=== PATIENT | male | born 1970 | race Caucasian/White ===

== ENCOUNTER 2022-07-09 15:09 | Inpatient (IN) | payer BC, SELFPAY ==
[~2022-07-09 15:09] MED LIST: Magnevist 469MG/ML 20 ML VIAL ONE
[2022-07-09] MEDS ORDERED: Acetaminophen 650 MG Suppository PR PRN (15:40)
[2022-07-09] MEDS ORDERED: HYDROcodone/Acetaminophen 10/325 mg Tablet PO PRN (15:40)
[2022-07-09] MEDS ORDERED: Ondansetron PF 4 MG/2 ML Vial IVP PRN (15:40)
[2022-07-09] MEDS ORDERED: Dextrose 50% Abboject 50 ML SYRINGE SLOW IVP PRN (15:45)
[2022-07-09] MEDS ORDERED: Dextrose 5% in Water 1,000 ML IV PRN (15:45)
[2022-07-09] MEDS: HumaLOG 300 UNITS/3 ML VIAL SC PRN (16:45)
[2022-07-09 16:52] LABS: #Basophils 0.1 10x3/uL (0.0-0.2); #Eosinphils 0.2 10x3/uL (0.0-0.5); #Monocytes 1.1 10x3/uL (0.0-1.1); #Neutrophils 12.4 10x3/uL (1.5-8.4); %Basophils 0.6 % (0.0-2.0); %Eosinophils 1.4 % (0.0-6.0); %Lymphocytes 9.1 % (18.0-47.0); %Monocytes 7.1 % (0.0-10.0); %Neutrophils 80.4 % (40.0-75.0); Hemoglobin 14.5 g/dL (13.5-17.5); Mean Corpuscular HGB CONC 34.1 g/dL (32.0-36.0); Mean Corpuscular Hemoglobin 29.1 pg (27.0-33.0); Mean Corpuscular Volume 85.2 fl (81.2-95.1); Mean Platelet Volume 10.9 fl (7.4-10.4); Platelet Count 387 10x3/uL (150-450); RBC Distribution Width 11.6 % (11.5-14.5); Red Blood Cell (RBC) Count 4.99 10x6/uL (4.32-5.72); White Blood Cell (WBC) Count 15.4 10x3/uL (3.5-10.5)
[2022-07-09 17:04] LABS: ALT (SGPT) 20 U/L (8-55); AST (SGOT) 12 U/L (5-34); Albumin 3.7 g/dL (3.5-5.0); Alkaline Phosphatase 118 U/L (40-110); Anion Gap 16 mmol/L (10-20); BUN (Urea Nitrogen) 22 mg/dL (8.4-25.7); Bilirubin, Total 0.4 mg/dL (0.2-1.2); Calc. Creatinine Clearance 0 mL/min (70-130); Calcium 9.2 mg/dL (7.8-10.44); Carbon Dioxide 24 mmol/L (22-29); Chloride 96 mmol/L (98-107); Estimated GFR 52; Globulin 2.9 g/dL (2.4-3.5); Potassium 5.2 mmol/L (3.5-5.1); Protein, Total 6.6 g/dL (6.0-8.3); Sodium 131 mmol/L (136-145)
[2022-07-09 17:15] LABS: Glucose 657 mg/dL (70-105)
[2022-07-09] MEDS ORDERED: Insulin Regular 300 UNITS/3 ML VIAL IVP SCH (18:00)
[2022-07-09 18:40] VITALS: BMI 29.0
[2022-07-09] MEDS ORDERED: VANCOMYCIN 1.75 GM/350 ML BAG 1.75 GM in Premix Bag 1 BAG IVPB SCH (20:00)
[2022-07-09] MEDS: Heparin 5,000 UNITS/ML VIAL SC SCH (20:06)
[2022-07-09] MEDS: Cefepime 2 GM in Sodium Chloride 0.9% 100 ML IVPB SCH (21:32)
[2022-07-10 08:20] LABS: #Basophils 0.1 10x3/uL (0.0-0.2); #Eosinphils 0.3 10x3/uL (0.0-0.5); %Basophils 0.8 % (0.0-2.0); %Eosinophils 2.1 % (0.0-6.0); %Monocytes 7.5 % (0.0-10.0); %Neutrophils 75.6 % (40.0-75.0); Hemoglobin 14.3 g/dL (13.5-17.5); Mean Corpuscular HGB CONC 33.9 g/dL (32.0-36.0); Mean Corpuscular Hemoglobin 28.5 pg (27.0-33.0); Mean Corpuscular Volume 84.2 fl (81.2-95.1); Mean Platelet Volume 10.3 fl (7.4-10.4); Platelet Count 351 10x3/uL (150-450); RBC Distribution Width 11.6 % (11.5-14.5); Red Blood Cell (RBC) Count 5.01 10x6/uL (4.32-5.72); White Blood Cell (WBC) Count 13.3 10x3/uL (3.5-10.5)
[2022-07-10 08:46] LABS: Anion Gap 13 mmol/L (10-20); BUN (Urea Nitrogen) 19 mg/dL (8.4-25.7); Calc. Creatinine Clearance 131 mL/min (70-130); Carbon Dioxide 23 mmol/L (22-29); Chloride 101 mmol/L (98-107); Estimated GFR 98; Glucose 346 mg/dL (70-105); Potassium 4.5 mmol/L (3.5-5.1); Sodium 132 mmol/L (136-145)
[2022-07-10] MEDS: Cefepime 2 GM in Sodium Chloride 0.9% 100 ML IVPB SCH ×2 (08:54→22:23)
[2022-07-10] MEDS: Heparin 5,000 UNITS/ML VIAL SC SCH ×2 (08:56→15:29)
[2022-07-10] MEDS: HumaLOG 300 UNITS/3 ML VIAL SC PRN ×2 (08:56→18:32)
[2022-07-10] MEDS: Vancomycin 1.5 GRAM/300 ML BAG 1.5 GM in Premix Bag 1 BAG IVPB SCH ×2 (12:52→23:06)
[2022-07-10] MEDS ORDERED: Hydrochlorothiazide 25 MG TAB PO SCH (18:00)
[2022-07-10] MEDS ORDERED: Vancomycin 1.5 GRAM/300 ML BAG 1.5 GM in Premix Bag 1 BAG IVPB SCH (21:00)
[2022-07-10] MEDS ORDERED: Lantus 1000 UNITS/10 ML VIAL SC SCH (21:00)
[2022-07-11] MEDS: Heparin 5,000 UNITS/ML VIAL SC SCH ×4 (00:52→21:43)
[2022-07-11 06:08] LABS: #Basophils 0.1 10x3/uL (0.0-0.2); #Eosinphils 0.2 10x3/uL (0.0-0.5); #Monocytes 0.9 10x3/uL (0.0-1.1); #Neutrophils 9.1 10x3/uL (1.5-8.4); %Basophils 0.8 % (0.0-2.0); %Eosinophils 1.9 % (0.0-6.0); %Lymphocytes 12.8 % (18.0-47.0); %Monocytes 7.6 % (0.0-10.0); %Neutrophils 75.9 % (40.0-75.0); Hemoglobin 14.4 g/dL (13.5-17.5); Mean Corpuscular HGB CONC 34.1 g/dL (32.0-36.0); Mean Corpuscular Hemoglobin 29.1 pg (27.0-33.0); Mean Corpuscular Volume 85.4 fl (81.2-95.1); Mean Platelet Volume 10.8 fl (7.4-10.4); Platelet Count 340 10x3/uL (150-450); RBC Distribution Width 11.6 % (11.5-14.5); Red Blood Cell (RBC) Count 4.94 10x6/uL (4.32-5.72); White Blood Cell (WBC) Count 11.9 10x3/uL (3.5-10.5)
[2022-07-11 06:21] LABS: Anion Gap 14 mmol/L (10-20); BUN (Urea Nitrogen) 18 mg/dL (8.4-25.7); Calc. Creatinine Clearance 116 mL/min (70-130); Calcium 9.1 mg/dL (7.8-10.44); Carbon Dioxide 22 mmol/L (22-29); Chloride 101 mmol/L (98-107); Estimated GFR 85; Glucose 381 mg/dL (70-105); Potassium 4.3 mmol/L (3.5-5.1); Sodium 133 mmol/L (136-145)
[2022-07-11] MEDS: Cefepime 2 GM in Sodium Chloride 0.9% 100 ML IVPB SCH (09:20)
[2022-07-11] MEDS: Hydrochlorothiazide 25 MG TAB PO SCH (09:45)
[2022-07-11] MEDS ORDERED: Lantus 1000 UNITS/10 ML VIAL SC SCH ×2 (10:15→21:00)
[2022-07-11 11:34] LABS: Vancomycin, Trough 14.1 ug/mL
[2022-07-11] MEDS ORDERED: Bupivacaine PF 0.5% 30 ML VIAL ONE (12:13)
[2022-07-11] MEDS ORDERED: Insulin Regular 300 UNITS/3 ML VIAL ONE (12:16)
[2022-07-11] MEDS ORDERED: Lidocaine 1% PF 5 ML VIAL ONE (12:21)
[2022-07-11] MEDS ORDERED: Ondansetron PF 4 MG/2 ML Vial ONE (12:21)
[2022-07-11] MEDS ORDERED: Fentanyl 100 MCG/2 ML VIAL ONE (12:21)
[2022-07-11] MEDS ORDERED: PROPOFOL 20 ML ONE (12:21)
[2022-07-11] MEDS: Vancomycin 1.5 GRAM/300 ML BAG 1.5 GM in Premix Bag 1 BAG IVPB SCH (12:32)
[2022-07-11] MEDS ORDERED: PHENYLEPHRINE-NS 100 MCG/ML 10 ML SYRINGE ONE (12:54)
[2022-07-11 13:29] LABS: Hemoglobin A1c 13.1 % (4.0-6.0)
[2022-07-11] MEDS: HumaLOG 300 UNITS/3 ML VIAL SC PRN ×2 (17:05→21:44)
[2022-07-11] MEDS: HYDROcodone/Acetaminophen 5/325 mg Tablet PO PRN ×2 (17:19→21:43)
[2022-07-11] MEDS: cefTRIAXone\\ROCEPHIN 2 GM in Sodium Chloride 0.9% 100 ML IVPB SCH (21:43)
[2022-07-12] MEDS: Vancomycin 1.5 GRAM/300 ML BAG 1.5 GM in Premix Bag 1 BAG IVPB SCH ×2 (00:11→10:38)
[2022-07-12] MEDS: HYDROcodone/Acetaminophen 5/325 mg Tablet PO PRN ×3 (05:33→15:26)
[2022-07-12 05:36] LABS: #Basophils 0.1 10x3/uL (0.0-0.2); #Eosinphils 0.2 10x3/uL (0.0-0.5); #Monocytes 1.5 10x3/uL (0.0-1.1); #Neutrophils 13.1 10x3/uL (1.5-8.4); %Basophils 0.5 % (0.0-2.0); %Eosinophils 1.4 % (0.0-6.0); %Lymphocytes 9.9 % (18.0-47.0); %Neutrophils 78.4 % (40.0-75.0); Hemoglobin 13.6 g/dL (13.5-17.5); Mean Corpuscular HGB CONC 33.1 g/dL (32.0-36.0); Mean Corpuscular Hemoglobin 28.4 pg (27.0-33.0); Mean Corpuscular Volume 85.8 fl (81.2-95.1); Mean Platelet Volume 10.8 fl (7.4-10.4); Platelet Count 341 10x3/uL (150-450); RBC Distribution Width 11.5 % (11.5-14.5); Red Blood Cell (RBC) Count 4.79 10x6/uL (4.32-5.72); White Blood Cell (WBC) Count 16.7 10x3/uL (3.5-10.5)
[2022-07-12 05:47] LABS: Anion Gap 12 mmol/L (10-20); BUN (Urea Nitrogen) 19 mg/dL (8.4-25.7); Calc. Creatinine Clearance 114 mL/min (70-130); Calcium 8.9 mg/dL (7.8-10.44); Carbon Dioxide 25 mmol/L (22-29); Chloride 102 mmol/L (98-107); Estimated GFR 83; Glucose 216 mg/dL (70-105); Potassium 4.3 mmol/L (3.5-5.1); Sodium 135 mmol/L (136-145)
[2022-07-12] MEDS: HumaLOG 300 UNITS/3 ML VIAL SC PRN (06:19)
[2022-07-12] MEDS: Heparin 5,000 UNITS/ML VIAL SC SCH ×3 (10:36→20:43)
[2022-07-12] MEDS: Hydrochlorothiazide 25 MG TAB PO SCH (10:45)
[2022-07-12] MEDS ORDERED: Lantus 1000 UNITS/10 ML VIAL SC SCH ×3 (14:30→21:00)
[2022-07-12] MEDS ORDERED: oxyCODONE 5 MG TAB PO PRN (16:03)
[2022-07-12] MEDS ORDERED: Morphine 2 MG/ML VIAL SLOW IVP SCH (16:15)
[2022-07-12] MEDS: oxyCODONE 5 MG TAB PO PRN ×2 (16:37→20:42)
[2022-07-12] MEDS: Acetaminophen 500 MG TAB PO SCH (20:42)
[2022-07-12] MEDS: cefTRIAXone\\ROCEPHIN 2 GM in Sodium Chloride 0.9% 100 ML IVPB SCH (20:43)
[2022-07-13] MEDS: Vancomycin 1.5 GRAM/300 ML BAG 1.5 GM in Premix Bag 1 BAG IVPB SCH (00:57)
[2022-07-13] MEDS: oxyCODONE 5 MG TAB PO PRN ×4 (00:57→14:05)
[2022-07-13 01:31] LABS: Vancomycin, Trough 15.5 ug/mL
[2022-07-13 04:40] LABS: #Basophils 0.1 10x3/uL (0.0-0.2); #Eosinphils 0.3 10x3/uL (0.0-0.5); #Monocytes 1.3 10x3/uL (0.0-1.1); #Neutrophils 9.4 10x3/uL (1.5-8.4); %Basophils 0.6 % (0.0-2.0); %Eosinophils 2.2 % (0.0-6.0); %Lymphocytes 16.4 % (18.0-47.0); %Monocytes 9.7 % (0.0-10.0); %Neutrophils 70.4 % (40.0-75.0); Mean Corpuscular HGB CONC 33.4 g/dL (32.0-36.0); Mean Corpuscular Hemoglobin 28.9 pg (27.0-33.0); Mean Corpuscular Volume 86.4 fl (81.2-95.1); Mean Platelet Volume 10.6 fl (7.4-10.4); Platelet Count 369 10x3/uL (150-450); RBC Distribution Width 11.8 % (11.5-14.5); White Blood Cell (WBC) Count 13.4 10x3/uL (3.5-10.5)
[2022-07-13 04:43] LABS: Anion Gap 13 mmol/L (10-20); BUN (Urea Nitrogen) 18 mg/dL (8.4-25.7); Calc. Creatinine Clearance 142 mL/min (70-130); Carbon Dioxide 24 mmol/L (22-29); Chloride 102 mmol/L (98-107); Estimated GFR 104; Glucose 150 mg/dL (70-105); Potassium 3.5 mmol/L (3.5-5.1); Sodium 135 mmol/L (136-145)
[2022-07-13] MEDS: Acetaminophen 500 MG TAB PO SCH (09:06)
[2022-07-13] MEDS: Heparin 5,000 UNITS/ML VIAL SC SCH (09:07)
[2022-07-13] MEDS: Hydrochlorothiazide 25 MG TAB PO SCH (09:07)
[2022-07-13 13:26] VITALS: BP 167/88; TEMP 97.9
== END 2022-07-13 14:30 | disposition home or self-care (01) | DRG 617 ==
LOC: CSHTELE 15:09
PROVIDERS: ADMIT Internal Medicine; ATTEND Hospitalist
PROC: 0Y6M0ZF Detachment at Right Foot, Partial 5th Ray, Open Approach (ICD-10-PCS; principal; 2022-07-11)
DX: E11.628 Type 2 diabetes mellitus with other skin complications (principal); E11.52 Type 2 diabetes mellitus with diabetic peripheral angiopathy with gangrene; L02.611 Cutaneous abscess of right foot; L03.115 Cellulitis of right lower limb; M86.8X7 Other osteomyelitis, ankle and foot; E87.5 Hyperkalemia; E11.65 Type 2 diabetes mellitus with hyperglycemia; N17.9 Acute kidney failure, unspecified; Z79.84 Long term (current) use of oral hypoglycemic drugs; Z79.899 Other long term (current) drug therapy; E11.69 Type 2 diabetes mellitus with other specified complication; M65.9 Synovitis and tenosynovitis, unspecified
CPT/HCPCS: 36415; 36416; 80048; 80053; 80202; 82010; 83036; 85025; 85652; 87040; 87070; 87077; 87102; 87186; 87205; 87206; 88305; 88311; 93005; 97139; A9579; J0692; J0696; J1644; J1815; J2405; J2704; J3010; J3370; J3490; S0020

== ENCOUNTER 2022-07-17 13:29 | Outpatient (CLI) | payer BC | END 2022-07-17 13:30 | disposition home or self-care (01) | LOC: CSHWCC 13:29 | PROVIDERS: ATTEND Nurse Practitioner Family | DX: T81.89XD Other complications of procedures, not elsewhere classified, subsequent encounter (principal); R60.0 Localized edema | CPT/HCPCS: 97605; 99203; G0463 ==

== ENCOUNTER 2022-07-19 12:59 | Outpatient (CLI) | payer BC | END 2022-07-19 13:00 | disposition home or self-care (01) | LOC: CSHWCC 12:59 | PROVIDERS: ATTEND Nurse Practitioner Family | DX: T81.89XD Other complications of procedures, not elsewhere classified, subsequent encounter (principal) | CPT/HCPCS: 99212; G0463 ==

== ENCOUNTER 2022-07-30 15:15 | Outpatient (CLI) | payer BC | END 2022-07-30 15:16 | disposition home or self-care (01) | LOC: CSHWCC 15:15 | PROVIDERS: ATTEND Nurse Practitioner Family | DX: T81.89XD Other complications of procedures, not elsewhere classified, subsequent encounter (principal); R60.0 Localized edema ==

== ENCOUNTER 2022-08-02 14:39 | Outpatient (CLI) | payer BC | END 2022-08-02 14:40 | disposition home or self-care (01) | LOC: CSHWCC 14:39 | PROVIDERS: ATTEND Nurse Practitioner Family | DX: T81.89XD Other complications of procedures, not elsewhere classified, subsequent encounter (principal); R60.0 Localized edema | CPT/HCPCS: 29581; 97605 ==

== ENCOUNTER 2022-08-05 14:28 | Outpatient (CLI) | payer BC | END 2022-08-05 14:29 | disposition home or self-care (01) | LOC: CSHWCC 14:28 | PROVIDERS: ATTEND Nurse Practitioner Family | DX: T81.89XD Other complications of procedures, not elsewhere classified, subsequent encounter (principal); R60.0 Localized edema | CPT/HCPCS: 97605 ==

== ENCOUNTER 2022-08-07 13:34 | Outpatient (CLI) | payer BC | END 2022-08-07 13:35 | disposition home or self-care (01) | LOC: CSHWCC 13:34 | PROVIDERS: ATTEND Nurse Practitioner Family | DX: T81.89XD Other complications of procedures, not elsewhere classified, subsequent encounter (principal); R60.0 Localized edema | CPT/HCPCS: 29581; 97605 ==

== ENCOUNTER 2022-08-12 13:05 | Outpatient (CLI) | payer BC | END 2022-08-12 13:06 | disposition home or self-care (01) | LOC: CSHWCC 13:05 | PROVIDERS: ATTEND Nurse Practitioner Family | DX: T81.89XD Other complications of procedures, not elsewhere classified, subsequent encounter (principal) | CPT/HCPCS: 87070; 87077; 87186; 87205 ==

== ENCOUNTER 2022-08-19 09:09 | Outpatient (CLI) | payer BC | END 2022-08-19 09:10 | disposition home or self-care (01) | LOC: CSHWCC 09:09 | PROVIDERS: ATTEND Nurse Practitioner Family | DX: T81.89XD Other complications of procedures, not elsewhere classified, subsequent encounter (principal); R60.0 Localized edema | CPT/HCPCS: 99213; G0463 ==

== ENCOUNTER 2022-08-26 12:33 | Outpatient (CLI) | payer BC | END 2022-08-26 12:34 | disposition home or self-care (01) | LOC: CSHWCC 12:33 | PROVIDERS: ATTEND Nurse Practitioner Family | DX: T81.89XD Other complications of procedures, not elsewhere classified, subsequent encounter (principal); R60.0 Localized edema ==

== ENCOUNTER 2022-09-09 08:04 | Outpatient (CLI) | payer BC | END 2022-09-09 08:05 | disposition home or self-care (01) | LOC: CSHWCC 08:04 | PROVIDERS: ATTEND Nurse Practitioner Family | DX: T81.89XD Other complications of procedures, not elsewhere classified, subsequent encounter (principal); R60.0 Localized edema | CPT/HCPCS: 11042 ==

== ENCOUNTER 2022-10-28 08:00 | Outpatient (CLI) | payer BC | END 2022-10-28 08:01 | disposition home or self-care (01) | LOC: CSHWCC 08:00 | PROVIDERS: ATTEND Nurse Practitioner Family | DX: R60.0 Localized edema (principal); T81.89XD Other complications of procedures, not elsewhere classified, subsequent encounter | CPT/HCPCS: 11044; 87070; 87077; 87186; 87205; 99212; G0463 ==

== ENCOUNTER 2022-11-20 08:29 | Outpatient (CLI) | payer BC | END 2022-11-20 08:30 | disposition home or self-care (01) | LOC: CSHWCC 08:29 | PROVIDERS: ATTEND Nurse Practitioner Family | DX: T81.89XD Other complications of procedures, not elsewhere classified, subsequent encounter (principal); R60.0 Localized edema | CPT/HCPCS: 97597; 99213; G0463 ==

== ENCOUNTER 2022-12-04 08:06 | Outpatient (CLI) | payer BC | END 2022-12-04 08:07 | disposition home or self-care (01) | LOC: CSHWCC 08:06 | PROVIDERS: ATTEND Nurse Practitioner Family | DX: R60.0 Localized edema (principal); T81.89XD Other complications of procedures, not elsewhere classified, subsequent encounter | CPT/HCPCS: 11042 ==

== ENCOUNTER 2022-12-25 08:27 | Outpatient (CLI) | payer BC | END 2022-12-25 08:28 | disposition home or self-care (01) | LOC: CSHWCC 08:27 | PROVIDERS: ATTEND Nurse Practitioner Family | DX: T81.89XD Other complications of procedures, not elsewhere classified, subsequent encounter (principal); R60.0 Localized edema | CPT/HCPCS: 11042; 87070; 87077; 87186; 87205 ==

== ENCOUNTER 2022-12-27 12:18 | Outpatient (CLI) | payer OTHER | END 2022-12-27 12:19 | disposition home or self-care (01) | LOC: CSHRAD 12:18 | PROVIDERS: ATTEND Nurse Practitioner Family | DX: T81.89XD Other complications of procedures, not elsewhere classified, subsequent encounter (principal); L97.419 Non-pressure chronic ulcer of right heel and midfoot with unspecified severity; Z87.39 Personal history of other diseases of the musculoskeletal system and connective tissue; R93.6 Abnormal findings on diagnostic imaging of limbs ==

== ENCOUNTER 2023-01-01 08:18 | Outpatient (CLI) | payer OTHER | END 2023-01-01 08:19 | disposition home or self-care (01) | LOC: CSHWCC 08:18 | PROVIDERS: ATTEND Nurse Practitioner Family | DX: T81.89XD Other complications of procedures, not elsewhere classified, subsequent encounter (principal); R60.0 Localized edema | CPT/HCPCS: 99212; G0463 ==

== ENCOUNTER 2023-01-08 08:03 | Outpatient (CLI) | payer OTHER | END 2023-01-08 08:04 | disposition home or self-care (01) | LOC: CSHWCC 08:03 | PROVIDERS: ATTEND Nurse Practitioner Family | DX: T81.89XD Other complications of procedures, not elsewhere classified, subsequent encounter (principal) | CPT/HCPCS: 99212; G0463 ==

== ENCOUNTER 2023-01-15 08:16 | Outpatient (CLI) | payer OTHER | END 2023-01-15 08:17 | disposition home or self-care (01) | LOC: CSHWCC 08:16 | PROVIDERS: ATTEND Nurse Practitioner Family | DX: T81.89XD Other complications of procedures, not elsewhere classified, subsequent encounter (principal) | CPT/HCPCS: 99211; G0463 ==

== ENCOUNTER 2023-02-12 08:06 | Outpatient (CLI) | payer OTHER | END 2023-02-12 08:07 | disposition home or self-care (01) | LOC: CSHWCC 08:06 | PROVIDERS: ATTEND Physician Assistant | DX: T81.89XD Other complications of procedures, not elsewhere classified, subsequent encounter (principal); E11.65 Type 2 diabetes mellitus with hyperglycemia | CPT/HCPCS: 11042 ==

== ENCOUNTER 2023-02-21 08:10 | Outpatient (CLI) | payer OTHER | END 2023-02-21 08:11 | disposition home or self-care (01) | LOC: CSHWCC 08:10 | PROVIDERS: ATTEND Preventive Medicine Undersea and Hyperbaric Medicine | DX: T81.89XD Other complications of procedures, not elsewhere classified, subsequent encounter (principal); E11.621 Type 2 diabetes mellitus with foot ulcer; L97.414 Non-pressure chronic ulcer of right heel and midfoot with necrosis of bone; M86.671 Other chronic osteomyelitis, right ankle and foot | CPT/HCPCS: 36416; 97602; 99212; G0463 ==

== ENCOUNTER 2023-02-21 09:41 | Outpatient (CLI) | payer OTHER | END 2023-02-21 09:42 | disposition home or self-care (01) | LOC: CSHRAD 09:41 | PROVIDERS: ATTEND Preventive Medicine Undersea and Hyperbaric Medicine | DX: T81.89XD Other complications of procedures, not elsewhere classified, subsequent encounter (principal); M86.671 Other chronic osteomyelitis, right ankle and foot ==

== ENCOUNTER 2023-05-26 08:20 | Outpatient (CLI) | payer OTHER | END 2023-05-26 08:21 | disposition home or self-care (01) | LOC: CSHWCC 08:20 | PROVIDERS: ATTEND Physician Assistant | DX: L97.415 Non-pressure chronic ulcer of right heel and midfoot with muscle involvement without evidence of necrosis (principal); M86.671 Other chronic osteomyelitis, right ankle and foot | CPT/HCPCS: 11042; 87070; 87077; 87186; 87205; 99213; G0463 ==

== ENCOUNTER 2023-06-02 09:27 | Outpatient (CLI) | payer OTHER | END 2023-06-02 09:28 | disposition home or self-care (01) | LOC: CSHWCC 09:27 | PROVIDERS: ATTEND Physician Assistant | DX: L97.415 Non-pressure chronic ulcer of right heel and midfoot with muscle involvement without evidence of necrosis (principal); M86.671 Other chronic osteomyelitis, right ankle and foot | CPT/HCPCS: 97597 ==

== ENCOUNTER 2023-06-09 09:14 | Outpatient (CLI) | payer OTHER | END 2023-06-09 09:15 | disposition home or self-care (01) | LOC: CSHWCC 09:14 | PROVIDERS: ATTEND Nurse Practitioner Family | DX: L97.415 Non-pressure chronic ulcer of right heel and midfoot with muscle involvement without evidence of necrosis (principal); M86.671 Other chronic osteomyelitis, right ankle and foot | CPT/HCPCS: 11042 ==

== ENCOUNTER 2023-06-16 08:49 | Outpatient (CLI) | payer SELFPAY | END 2023-06-16 08:50 | disposition home or self-care (01) | LOC: CSHWCC 08:49 | PROVIDERS: ATTEND Nurse Practitioner Family | DX: L97.415 Non-pressure chronic ulcer of right heel and midfoot with muscle involvement without evidence of necrosis (principal); M86.671 Other chronic osteomyelitis, right ankle and foot | CPT/HCPCS: 11042 ==

== ENCOUNTER 2023-06-23 09:46 | Outpatient (CLI) | payer OTHER, SELFPAY | END 2023-06-23 09:47 | disposition home or self-care (01) | LOC: CSHWCC 09:46 | PROVIDERS: ATTEND Nurse Practitioner Family | DX: L97.415 Non-pressure chronic ulcer of right heel and midfoot with muscle involvement without evidence of necrosis (principal); M86.671 Other chronic osteomyelitis, right ankle and foot | CPT/HCPCS: 11042 ==

== ENCOUNTER 2023-06-30 12:48 | Outpatient (CLI) | payer OTHER, SELFPAY | END 2023-06-30 12:49 | disposition home or self-care (01) | LOC: CSHWCC 12:48 | PROVIDERS: ATTEND Nurse Practitioner Family | DX: E11.621 Type 2 diabetes mellitus with foot ulcer (principal); L97.415 Non-pressure chronic ulcer of right heel and midfoot with muscle involvement without evidence of necrosis; M86.671 Other chronic osteomyelitis, right ankle and foot | CPT/HCPCS: 11042 ==

== ENCOUNTER 2023-07-28 13:20 | Outpatient (CLI) | payer OTHER | END 2023-07-28 13:21 | disposition home or self-care (01) | LOC: CSHWCC 13:20 | PROVIDERS: ATTEND Nurse Practitioner Family | DX: E11.621 Type 2 diabetes mellitus with foot ulcer (principal); L97.415 Non-pressure chronic ulcer of right heel and midfoot with muscle involvement without evidence of necrosis; M86.671 Other chronic osteomyelitis, right ankle and foot | CPT/HCPCS: 11042; 87070; 87077; 87186; 87205; 99213; G0463 ==

== ENCOUNTER 2023-09-08 08:30 | Outpatient (CLI) | payer OTHER | END 2023-09-08 08:31 | disposition home or self-care (01) | LOC: CSHWCC 08:30 | PROVIDERS: ATTEND Family Medicine | DX: E11.621 Type 2 diabetes mellitus with foot ulcer (principal); L97.415 Non-pressure chronic ulcer of right heel and midfoot with muscle involvement without evidence of necrosis; M86.671 Other chronic osteomyelitis, right ankle and foot | CPT/HCPCS: 97597 ==

== ENCOUNTER 2023-09-15 10:27 | Outpatient (CLI) | payer OTHER | END 2023-09-15 10:28 | disposition home or self-care (01) | LOC: CSHWCC 10:27 | PROVIDERS: ATTEND Nurse Practitioner Family | DX: E11.621 Type 2 diabetes mellitus with foot ulcer (principal); L97.415 Non-pressure chronic ulcer of right heel and midfoot with muscle involvement without evidence of necrosis; M86.671 Other chronic osteomyelitis, right ankle and foot | CPT/HCPCS: 11042 ==

== ENCOUNTER 2023-09-22 10:08 | Outpatient (CLI) | payer OTHER | END 2023-09-22 10:09 | disposition home or self-care (01) | LOC: CSHWCC 10:08 | PROVIDERS: ATTEND Nurse Practitioner Family | DX: E11.621 Type 2 diabetes mellitus with foot ulcer (principal); L97.415 Non-pressure chronic ulcer of right heel and midfoot with muscle involvement without evidence of necrosis; M86.671 Other chronic osteomyelitis, right ankle and foot | CPT/HCPCS: 11042 ==

== ENCOUNTER 2023-10-07 08:20 | Outpatient (CLI) | payer OTHER | END 2023-10-07 08:21 | disposition home or self-care (01) | LOC: CSHWCC 08:20 | PROVIDERS: ATTEND Nurse Practitioner Family | DX: E11.621 Type 2 diabetes mellitus with foot ulcer (principal); L97.415 Non-pressure chronic ulcer of right heel and midfoot with muscle involvement without evidence of necrosis; M86.671 Other chronic osteomyelitis, right ankle and foot | CPT/HCPCS: 11042; 99212; G0463 ==

== ENCOUNTER 2023-10-13 10:21 | Outpatient (CLI) | payer OTHER | END 2023-10-13 10:22 | disposition home or self-care (01) | LOC: CSHWCC 10:21 | PROVIDERS: ATTEND Nurse Practitioner Family | DX: E11.621 Type 2 diabetes mellitus with foot ulcer (principal); L97.415 Non-pressure chronic ulcer of right heel and midfoot with muscle involvement without evidence of necrosis; M86.671 Other chronic osteomyelitis, right ankle and foot | CPT/HCPCS: 97597 ==

== ENCOUNTER 2023-10-20 10:00 | Outpatient (CLI) | payer OTHER | END 2023-10-20 10:01 | disposition home or self-care (01) | LOC: CSHWCC 10:00 | PROVIDERS: ATTEND Nurse Practitioner Family | DX: E11.621 Type 2 diabetes mellitus with foot ulcer (principal); L97.415 Non-pressure chronic ulcer of right heel and midfoot with muscle involvement without evidence of necrosis; M86.671 Other chronic osteomyelitis, right ankle and foot | CPT/HCPCS: 97597 ==

== ENCOUNTER 2023-10-27 09:17 | Outpatient (CLI) | payer OTHER | END 2023-10-27 09:18 | disposition home or self-care (01) | LOC: CSHWCC 09:17 | PROVIDERS: ATTEND Preventive Medicine Undersea and Hyperbaric Medicine | DX: E11.621 Type 2 diabetes mellitus with foot ulcer (principal); L97.415 Non-pressure chronic ulcer of right heel and midfoot with muscle involvement without evidence of necrosis; M86.671 Other chronic osteomyelitis, right ankle and foot | CPT/HCPCS: 99213; G0463 ==

== ENCOUNTER 2023-11-03 11:03 | Outpatient (CLI) | payer OTHER | END 2023-11-03 11:04 | disposition home or self-care (01) | LOC: CSHWCC 11:03 | PROVIDERS: ATTEND Nurse Practitioner Family | DX: E11.621 Type 2 diabetes mellitus with foot ulcer (principal); L97.415 Non-pressure chronic ulcer of right heel and midfoot with muscle involvement without evidence of necrosis; M86.671 Other chronic osteomyelitis, right ankle and foot ==

== ENCOUNTER 2023-11-18 10:32 | Outpatient (CLI) | payer OTHER | END 2023-11-18 10:33 | disposition home or self-care (01) | LOC: CSHWCC 10:32 | PROVIDERS: ATTEND Nurse Practitioner Family | DX: E11.621 Type 2 diabetes mellitus with foot ulcer (principal); L97.415 Non-pressure chronic ulcer of right heel and midfoot with muscle involvement without evidence of necrosis; M86.671 Other chronic osteomyelitis, right ankle and foot | CPT/HCPCS: 11042 ==

== ENCOUNTER 2023-12-01 10:58 | Outpatient (CLI) | payer OTHER | END 2023-12-01 10:59 | disposition home or self-care (01) | LOC: CSHWCC 10:58 | PROVIDERS: ATTEND Nurse Practitioner Family | DX: E11.621 Type 2 diabetes mellitus with foot ulcer (principal); L97.415 Non-pressure chronic ulcer of right heel and midfoot with muscle involvement without evidence of necrosis; M86.671 Other chronic osteomyelitis, right ankle and foot | CPT/HCPCS: 97597 ==

== ENCOUNTER 2023-12-23 09:03 | Outpatient (CLI) | payer OTHER | END 2023-12-23 09:04 | disposition home or self-care (01) | LOC: CSHWCC 09:03 | PROVIDERS: ATTEND Nurse Practitioner Family | DX: E11.621 Type 2 diabetes mellitus with foot ulcer (principal); L97.415 Non-pressure chronic ulcer of right heel and midfoot with muscle involvement without evidence of necrosis; M86.671 Other chronic osteomyelitis, right ankle and foot | CPT/HCPCS: 97597 ==

== ENCOUNTER 2023-12-23 09:17 | Inpatient (IN) | payer OTHER ==
[2023-12-23] MEDS ORDERED: Lidocaine 1% w/Epinephrine 1:200K 30 ML VIAL ONE (09:27)
[2023-12-23] MEDS ORDERED: Cefepime 2 GM VIAL ONE (09:48)
[2023-12-23 10:15] LABS: #Basophils 0.07 10x3/uL (0.0-0.2); #Eosinphils 0.27 10x3/uL (0.0-0.5); #Monocytes 1.53 10x3/uL (0.0-1.1); #Neutrophils 16.11 10x3/uL (1.5-8.4); %Basophils 0.4 % (0.0-2.0); %Eosinophils 1.4 % (0.0-6.0); %Monocytes 8.1 % (0.0-10.0); %Neutrophils 85.4 % (40.0-75.0); Hematocrit 37.9 % (38.8-50.0); Hemoglobin 12.9 g/dL (13.5-17.5); Mean Corpuscular Hemoglobin 30.4 pg (27.0-33.0); Mean Corpuscular Volume 89.2 fL (81.2-95.1); Platelet Count 279 10x3/uL (150-450); RBC Distribution Width 12.6 % (11.5-14.5); Red Blood Cell (RBC) Count 4.25 10x6/uL (4.32-5.72); White Blood Cell (WBC) Count 18.9 10x3/uL (3.5-10.5)
[2023-12-23 10:25] LABS: ALT (SGPT) 14 U/L (8-55); AST (SGOT) 12 U/L (5-34); Albumin 3.2 g/dL (3.5-5.0); Alkaline Phosphatase 133 U/L (40-110); Anion Gap 15 mmol/L (10-20); BUN (Urea Nitrogen) 31 mg/dL (8.4-25.7); Bilirubin, Total 0.4 mg/dL (0.2-1.2); Calc. Creatinine Clearance 0 mL/min (70-130); Calcium 9.9 mg/dL (7.8-10.44); Carbon Dioxide 23 mmol/L (22-29); Chloride 95 mmol/L (98-107); Estimated GFR 46; Globulin 4.1 g/dL (2.4-3.5); Potassium 4.9 mmol/L (3.5-5.1); Protein, Total 7.3 g/dL (6.0-8.3); Sodium 128 mmol/L (136-145)
[2023-12-23 10:32] LABS: Glucose 590 mg/dL (70-105)
[2023-12-23] MEDS ORDERED: Morphine 4 MG/ML VIAL ONE (10:56)
[2023-12-23] MEDS ORDERED: Insulin Regular, Human 100 UNIT/ML 10 ML VIAL ONE (10:57)
[2023-12-23] MEDS ORDERED: Glucagon 1 MG/ML KIT IM PRN (11:34)
[2023-12-23] MEDS ORDERED: Dextrose 50% Abboject 50 ML SYRINGE SLOW IVP PRN (11:34)
[2023-12-23] MEDS ORDERED: Dextrose 5% in Water 1,000 ML IV PRN (11:34)
[2023-12-23] MEDS: Sodium Chloride 0.9% 1,000 ML IV SCH (11:45)
[2023-12-23] MEDS: VANCOMYCIN 2 GRAM/400 ML BAG 2 GM in Premix 1 BAG IVPB SCH (12:04)
[2023-12-23 12:20] VITALS: BMI 28.9
[2023-12-23] MEDS: Acetaminophen 325 MG TAB PO SCH (12:49)
[2023-12-23 13:01] LABS: Lactic Acid 1.7 mmol/L (0.5-2.2)
[2023-12-23] MEDS: Insulin Lispro 100 UNIT/ML 10 ML VIAL SC PRN (13:06)
[2023-12-23] MEDS ORDERED: VANCOMYCIN IVPB PRN (13:39)
[2023-12-23] MEDS: traMADol HCl 50 MG TAB PO PRN (13:45)
[2023-12-23] MEDS ORDERED: Vancomycin 1 GM in Premix 1 BAG IVPB SCH (21:00)
[2023-12-24 03:53] LABS: #Basophils 0.06 10x3/uL (0.0-0.2); #Eosinphils 0.52 10x3/uL (0.0-0.5); #Monocytes 1.83 10x3/uL (0.0-1.1); #Neutrophils 15.47 10x3/uL (1.5-8.4); %Basophils 0.3 % (0.0-2.0); %Eosinophils 2.7 % (0.0-6.0); %Lymphocytes 7.4 % (18.0-47.0); %Monocytes 9.4 % (0.0-10.0); %Neutrophils 79.2 % (40.0-75.0); Hematocrit 31.7 % (38.8-50.0); Hemoglobin 10.7 g/dL (13.5-17.5); Mean Corpuscular HGB CONC 33.8 g/dL (32.0-36.0); Mean Corpuscular Hemoglobin 30.4 pg (27.0-33.0); Mean Corpuscular Volume 90.1 fL (81.2-95.1); Mean Platelet Volume 11.4 fL (7.4-10.4); Platelet Count 261 10x3/uL (150-450); RBC Distribution Width 12.7 % (11.5-14.5); Red Blood Cell (RBC) Count 3.52 10x6/uL (4.32-5.72); White Blood Cell (WBC) Count 19.5 10x3/uL (3.5-10.5)
[2023-12-24 03:55] LABS: Anion Gap 13 mmol/L (10-20); BUN (Urea Nitrogen) 20 mg/dL (8.4-25.7); Calc. Creatinine Clearance 104 mL/min (70-130); Calcium 8.8 mg/dL (7.8-10.44); Carbon Dioxide 20 mmol/L (22-29); Chloride 100 mmol/L (98-107); Estimated GFR 73; Glucose 208 mg/dL (70-105); Potassium 4.2 mmol/L (3.5-5.1); Sodium 129 mmol/L (136-145)
[2023-12-24 04:13] LABS: Vancomycin, Random 9.4 ug/mL (See Comment)
[2023-12-24] MEDS: VANCOMYCIN 1.25 GM/250 ML BAG 1.25 GM in Premix 1 BAG IVPB SCH (04:32)
[2023-12-24] MEDS: Enoxaparin 40 MG (0.4 mL) SYRINGE SC SCH (08:59)
[2023-12-24 09:38] VITALS: BMI 28.9
[2023-12-24] MEDS ORDERED: Vancomycin 1.5 GRAM/300 ML BAG 1.5 GM in Premix 1 BAG IVPB SCH (12:00)
[2023-12-24] MEDS ORDERED: Polyethylene Glycol 3350 17 GM Packet PO PRN (14:26)
[2023-12-24] MEDS: HYDROcodone/Acetaminophen 5/325 mg Tablet PO PRN (14:44)
[2023-12-25 04:40] LABS: #Basophils 0.06 10x3/uL (0.0-0.2); #Eosinphils 0.45 10x3/uL (0.0-0.5); #Monocytes 1.69 10x3/uL (0.0-1.1); #Neutrophils 14.75 10x3/uL (1.5-8.4); %Basophils 0.3 % (0.0-2.0); %Eosinophils 2.5 % (0.0-6.0); %Lymphocytes 5.7 % (18.0-47.0); %Monocytes 9.3 % (0.0-10.0); Hematocrit 30.8 % (38.8-50.0); Hemoglobin 10.2 g/dL (13.5-17.5); Mean Corpuscular HGB CONC 33.1 g/dL (32.0-36.0); Mean Corpuscular Volume 90.6 fL (81.2-95.1); Mean Platelet Volume 10.8 fL (7.4-10.4); Platelet Count 285 10x3/uL (150-450); RBC Distribution Width 12.7 % (11.5-14.5); White Blood Cell (WBC) Count 18.2 10x3/uL (3.5-10.5)
[2023-12-25 04:47] LABS: Vancomycin, Random 13.8 ug/mL (See Comment)
[2023-12-25 04:48] LABS: Anion Gap 13 mmol/L (10-20); BUN (Urea Nitrogen) 12 mg/dL (8.4-25.7); Calc. Creatinine Clearance 118 mL/min (70-130); Calcium 8.9 mg/dL (7.8-10.44); Carbon Dioxide 20 mmol/L (22-29); Chloride 102 mmol/L (98-107); Estimated GFR 84; Glucose 188 mg/dL (70-105); Potassium 4.4 mmol/L (3.5-5.1); Sodium 131 mmol/L (136-145)
[2023-12-25] MEDS: Lantus 1000 UNITS/10 ML VIAL SC SCH (12:23)
[2023-12-25] MEDS: CEFAZOLIN 1 GM in Sodium Chloride 0.9% 100 ML IVPB SCH ×2 (14:43→23:30)
[2023-12-25 16:35] LABS: Hemoglobin A1c 10.2 % (4.0-6.0)
[2023-12-26 04:14] LABS: #Basophils 0.08 10x3/uL (0.0-0.2); #Eosinphils 0.45 10x3/uL (0.0-0.5); #Neutrophils 12.27 10x3/uL (1.5-8.4); %Basophils 0.5 % (0.0-2.0); %Eosinophils 2.8 % (0.0-6.0); %Lymphocytes 7.5 % (18.0-47.0); %Monocytes 11.2 % (0.0-10.0); %Neutrophils 76.6 % (40.0-75.0); Hematocrit 30.3 % (38.8-50.0); Hemoglobin 10.1 g/dL (13.5-17.5); Mean Corpuscular HGB CONC 33.3 g/dL (32.0-36.0); Mean Corpuscular Hemoglobin 29.9 pg (27.0-33.0); Mean Corpuscular Volume 89.6 fL (81.2-95.1); Mean Platelet Volume 10.8 fL (7.4-10.4); Platelet Count 310 10x3/uL (150-450); RBC Distribution Width 12.9 % (11.5-14.5); Red Blood Cell (RBC) Count 3.38 10x6/uL (4.32-5.72)
[2023-12-26 04:17] LABS: Anion Gap 13 mmol/L (10-20); BUN (Urea Nitrogen) 10 mg/dL (8.4-25.7); Calc. Creatinine Clearance 133 mL/min (70-130); Calcium 9.1 mg/dL (7.8-10.44); Carbon Dioxide 24 mmol/L (22-29); Chloride 101 mmol/L (98-107); Estimated GFR 98; Glucose 186 mg/dL (70-105); Potassium 4.5 mmol/L (3.5-5.1); Sodium 133 mmol/L (136-145)
[2023-12-26] MEDS: Lisinopril 20 MG TAB PO SCH (04:40)
[2023-12-26] MEDS: CEFAZOLIN 2 GM in Sodium Chloride 0.9% 100 ML IVPB SCH (06:23)
[2023-12-26] MEDS: Lantus 1000 UNITS/10 ML VIAL SC SCH (09:11)
[2023-12-26] MEDS: Mupirocin 2% Ointment 22 GM Tube TOP SCH (21:29)
[2023-12-27 04:44] LABS: #Basophils 0.05 10x3/uL (0.0-0.2); #Eosinphils 0.52 10x3/uL (0.0-0.5); #Monocytes 1.59 10x3/uL (0.0-1.1); #Neutrophils 10.46 10x3/uL (1.5-8.4); %Basophils 0.4 % (0.0-2.0); %Eosinophils 3.6 % (0.0-6.0); %Lymphocytes 8.9 % (18.0-47.0); %Monocytes 11.1 % (0.0-10.0); %Neutrophils 73.3 % (40.0-75.0); Hematocrit 30.5 % (38.8-50.0); Hemoglobin 10.2 g/dL (13.5-17.5); Mean Corpuscular HGB CONC 33.4 g/dL (32.0-36.0); Mean Corpuscular Hemoglobin 30.3 pg (27.0-33.0); Mean Corpuscular Volume 90.5 fL (81.2-95.1); Mean Platelet Volume 10.7 fL (7.4-10.4); Platelet Count 286 10x3/uL (150-450); RBC Distribution Width 12.7 % (11.5-14.5); Red Blood Cell (RBC) Count 3.37 10x6/uL (4.32-5.72); White Blood Cell (WBC) Count 14.3 10x3/uL (3.5-10.5)
[2023-12-27 04:59] LABS: Anion Gap 12 mmol/L (10-20); BUN (Urea Nitrogen) 9 mg/dL (8.4-25.7); Calc. Creatinine Clearance 131 mL/min (70-130); Calcium 8.8 mg/dL (7.8-10.44); Carbon Dioxide 24 mmol/L (22-29); Chloride 102 mmol/L (98-107); Estimated GFR 96; Glucose 241 mg/dL (70-105); Potassium 3.9 mmol/L (3.5-5.1); Sodium 134 mmol/L (136-145)
[2023-12-27] MEDS: Lisinopril 20 MG TAB PO SCH (08:36)
[2023-12-27] MEDS ORDERED: hydrALAZINE 25 MG TAB PO PRN (11:10)
[2023-12-28 06:27] LABS: #Basophils 0.11 10x3/uL (0.0-0.2); #Monocytes 1.52 10x3/uL (0.0-1.1); %Basophils 0.8 % (0.0-2.0); %Eosinophils 4.2 % (0.0-6.0); %Lymphocytes 9.4 % (18.0-47.0); %Monocytes 10.6 % (0.0-10.0); %Neutrophils 70.6 % (40.0-75.0); Hematocrit 30.8 % (38.8-50.0); Hemoglobin 10.7 g/dL (13.5-17.5); Mean Corpuscular HGB CONC 34.7 g/dL (32.0-36.0); Mean Corpuscular Hemoglobin 30.7 pg (27.0-33.0); Mean Corpuscular Volume 88.5 fL (81.2-95.1); Mean Platelet Volume 10.1 fL (7.4-10.4); Platelet Count 341 10x3/uL (150-450); Red Blood Cell (RBC) Count 3.48 10x6/uL (4.32-5.72); White Blood Cell (WBC) Count 14.3 10x3/uL (3.5-10.5)
[2023-12-28 06:41] LABS: Anion Gap 12 mmol/L (10-20); BUN (Urea Nitrogen) 8 mg/dL (8.4-25.7); Calc. Creatinine Clearance 145 mL/min (70-130); Calcium 9.1 mg/dL (7.8-10.44); Carbon Dioxide 25 mmol/L (22-29); Chloride 101 mmol/L (98-107); Estimated GFR 104; Glucose 196 mg/dL (70-105); Sodium 134 mmol/L (136-145)
[2023-12-28] MEDS ORDERED: Lidocaine 1% w/Epinephrine 1:200K 30 ML VIAL FS PRN (17:27)
[2023-12-29 04:55] LABS: Anion Gap 13 mmol/L (10-20); BUN (Urea Nitrogen) 11 mg/dL (8.4-25.7); Calc. Creatinine Clearance 133 mL/min (70-130); Calcium 9.2 mg/dL (7.8-10.44); Carbon Dioxide 25 mmol/L (22-29); Chloride 103 mmol/L (98-107); Estimated GFR 98; Glucose 218 mg/dL (70-105); Potassium 4.4 mmol/L (3.5-5.1); Sodium 137 mmol/L (136-145)
[2023-12-29 05:23] LABS: Band 9 % (5-11); Eosinophils 8 % (0-10); Lymphocytes 6 % (21-51); Metamyelocyte 3 % (0-0); Monocytes 10 % (0-10); Neutrophil 62 % (42-75); RBC Morph Comment Within Normal Limits; Reactive Lymphocytes 2 % (0-10)
[2023-12-29 05:26] LABS: Platelet Adequacy Comment Appears Adequate
[2023-12-29 05:27] LABS: Delete Auto Diff?? YES; Hematocrit 33.2 % (38.8-50.0); Hemoglobin 10.7 g/dL (13.5-17.5); Mean Corpuscular HGB CONC 32.2 g/dL (32.0-36.0); Mean Corpuscular Hemoglobin 29.6 pg (27.0-33.0); Mean Corpuscular Volume 91.7 fL (81.2-95.1); Mean Platelet Volume 10.9 fL (7.4-10.4); Platelet Count 369 10x3/uL (150-450); RBC Distribution Width 12.8 % (11.5-14.5); Red Blood Cell (RBC) Count 3.62 10x6/uL (4.32-5.72)
[2023-12-29] MEDS: Lantus 1000 UNITS/10 ML VIAL SC SCH (08:36)
[2023-12-29] MEDS ORDERED: Lidocaine 1% w/Epinephrine 1:200K 30 ML VIAL FS SCH (09:45)
[2023-12-29] MEDS ORDERED: Bupivacaine HCl 0.5%/Epinephrine 1:200,000/PF 30 ml Vial IJ SCH (09:45)
[2023-12-29] MEDS: Amlodipine 5 MG TAB PO SCH (14:29)
[2023-12-30] MEDS: Amlodipine 10 MG TAB PO SCH (08:52)
[2023-12-30 12:17] VITALS: BP 150/68; TEMP 98.2
== END 2023-12-30 15:28 | disposition home or self-care (01) | DRG 854 ==
LOC: CSHERS 09:17 → CSHTELE 11:48
PROVIDERS: ADMIT Internal Medicine; ATTEND Internal Medicine
PROC: 0W9L0ZZ Drainage of Lower Back, Open Approach (ICD-10-PCS; 2023-12-23)
PROC: 0J970ZZ Drainage of Back Subcutaneous Tissue and Fascia, Open Approach (ICD-10-PCS; principal; 2023-12-29)
PROC: 0JB70ZZ Excision of Back Subcutaneous Tissue and Fascia, Open Approach (ICD-10-PCS; 2023-12-29)
DX: A41.01 Sepsis due to Methicillin susceptible Staphylococcus aureus (principal); E87.1 Hypo-osmolality and hyponatremia; L02.212 Cutaneous abscess of back [any part, except buttock and flank]; N17.9 Acute kidney failure, unspecified; I10 Essential (primary) hypertension; E11.65 Type 2 diabetes mellitus with hyperglycemia; B95.1 Streptococcus, group B, as the cause of diseases classified elsewhere; Z79.899 Other long term (current) drug therapy; Z79.85 Long-term (current) use of injectable non-insulin antidiabetic drugs
CPT/HCPCS: 10060; 36415; 36416; 72157; 72158; 80048; 80053; 80202; 83036; 83605; 85025; 86140; 87040; 87077; 87149; 87186; 93306; 96374; 96375; 97139; J0690; J0692; J1650; J1815; J2272; J3370; J7030

== ENCOUNTER 2024-01-29 09:20 | Outpatient (CLI) | payer OTHER | END 2024-01-29 09:21 | disposition home or self-care (01) | LOC: CSHWCC 09:20 | PROVIDERS: ATTEND Nurse Practitioner Family | DX: S31.000D Unspecified open wound of lower back and pelvis without penetration into retroperitoneum, subsequent encounter (principal); E11.621 Type 2 diabetes mellitus with foot ulcer; L97.415 Non-pressure chronic ulcer of right heel and midfoot with muscle involvement without evidence of necrosis; M86.671 Other chronic osteomyelitis, right ankle and foot; L02.212 Cutaneous abscess of back [any part, except buttock and flank] | CPT/HCPCS: 11042; 97597 ==

== ENCOUNTER 2024-02-04 13:48 | Outpatient (CLI) | payer OTHER | END 2024-02-04 13:49 | disposition home or self-care (01) | LOC: CSHWCC 13:48 | PROVIDERS: ATTEND Nurse Practitioner Family | DX: E11.621 Type 2 diabetes mellitus with foot ulcer (principal); L97.415 Non-pressure chronic ulcer of right heel and midfoot with muscle involvement without evidence of necrosis; M86.671 Other chronic osteomyelitis, right ankle and foot; S31.000D Unspecified open wound of lower back and pelvis without penetration into retroperitoneum, subsequent encounter; L02.212 Cutaneous abscess of back [any part, except buttock and flank] | CPT/HCPCS: 11042; 97597 ==

== ENCOUNTER 2024-03-02 09:23 | Outpatient (CLI) | payer OTHER | END 2024-03-02 09:24 | disposition home or self-care (01) | LOC: CSHWCC 09:23 | PROVIDERS: ATTEND Nurse Practitioner Family | DX: S31.000D Unspecified open wound of lower back and pelvis without penetration into retroperitoneum, subsequent encounter (principal); E11.621 Type 2 diabetes mellitus with foot ulcer; L97.415 Non-pressure chronic ulcer of right heel and midfoot with muscle involvement without evidence of necrosis; L02.212 Cutaneous abscess of back [any part, except buttock and flank]; M86.671 Other chronic osteomyelitis, right ankle and foot | CPT/HCPCS: 11042 ==

== ENCOUNTER 2024-03-12 08:12 | Outpatient (CLI) | payer OTHER | END 2024-03-12 08:13 | disposition home or self-care (01) | LOC: CSHWCC 08:12 | PROVIDERS: ATTEND Nurse Practitioner Family | DX: S31.000D Unspecified open wound of lower back and pelvis without penetration into retroperitoneum, subsequent encounter (principal); E11.621 Type 2 diabetes mellitus with foot ulcer; L97.415 Non-pressure chronic ulcer of right heel and midfoot with muscle involvement without evidence of necrosis; M86.671 Other chronic osteomyelitis, right ankle and foot; L02.212 Cutaneous abscess of back [any part, except buttock and flank] | CPT/HCPCS: 97597 ==

== ENCOUNTER 2024-03-19 08:51 | Outpatient (CLI) | payer OTHER | END 2024-03-19 08:52 | disposition home or self-care (01) | LOC: CSHWCC 08:51 | PROVIDERS: ATTEND Nurse Practitioner Family | DX: S31.000D Unspecified open wound of lower back and pelvis without penetration into retroperitoneum, subsequent encounter (principal); E11.621 Type 2 diabetes mellitus with foot ulcer; L97.415 Non-pressure chronic ulcer of right heel and midfoot with muscle involvement without evidence of necrosis; L02.212 Cutaneous abscess of back [any part, except buttock and flank]; M86.671 Other chronic osteomyelitis, right ankle and foot | CPT/HCPCS: 97597 ==

== ENCOUNTER 2024-03-26 08:42 | Outpatient (CLI) | payer OTHER | END 2024-03-26 08:43 | disposition home or self-care (01) | LOC: CSHWCC 08:42 | PROVIDERS: ATTEND Nurse Practitioner Family | DX: S31.000D Unspecified open wound of lower back and pelvis without penetration into retroperitoneum, subsequent encounter (principal); E11.621 Type 2 diabetes mellitus with foot ulcer; L97.415 Non-pressure chronic ulcer of right heel and midfoot with muscle involvement without evidence of necrosis; L02.212 Cutaneous abscess of back [any part, except buttock and flank]; M86.671 Other chronic osteomyelitis, right ankle and foot | CPT/HCPCS: 97597 ==

== ENCOUNTER 2024-04-09 08:36 | Outpatient (CLI) | payer OTHER | END 2024-04-09 08:37 | disposition home or self-care (01) | LOC: CSHWCC 08:36 | PROVIDERS: ATTEND Family Medicine | DX: E11.621 Type 2 diabetes mellitus with foot ulcer (principal); L97.415 Non-pressure chronic ulcer of right heel and midfoot with muscle involvement without evidence of necrosis; S31.000D Unspecified open wound of lower back and pelvis without penetration into retroperitoneum, subsequent encounter; L02.212 Cutaneous abscess of back [any part, except buttock and flank]; M86.671 Other chronic osteomyelitis, right ankle and foot | CPT/HCPCS: 99212; G0463 ==

== ENCOUNTER 2024-04-14 12:03 | Outpatient (CLI) | payer OTHER | END 2024-04-14 12:04 | disposition home or self-care (01) | LOC: CSHWCC 12:03 | PROVIDERS: ATTEND Nurse Practitioner Family | DX: E11.621 Type 2 diabetes mellitus with foot ulcer (principal); L97.415 Non-pressure chronic ulcer of right heel and midfoot with muscle involvement without evidence of necrosis; L02.212 Cutaneous abscess of back [any part, except buttock and flank]; M86.671 Other chronic osteomyelitis, right ankle and foot; S31.000D Unspecified open wound of lower back and pelvis without penetration into retroperitoneum, subsequent encounter | CPT/HCPCS: 11042 ==

== ENCOUNTER 2024-04-21 08:44 | Outpatient (CLI) | payer OTHER | END 2024-04-21 08:45 | disposition home or self-care (01) | LOC: CSHWCC 08:44 | PROVIDERS: ATTEND Nurse Practitioner Family | DX: S31.000D Unspecified open wound of lower back and pelvis without penetration into retroperitoneum, subsequent encounter (principal); E11.621 Type 2 diabetes mellitus with foot ulcer; L97.415 Non-pressure chronic ulcer of right heel and midfoot with muscle involvement without evidence of necrosis; M86.671 Other chronic osteomyelitis, right ankle and foot; L02.212 Cutaneous abscess of back [any part, except buttock and flank] | CPT/HCPCS: 97597 ==

== ENCOUNTER 2024-05-04 10:11 | Outpatient (CLI) | payer OTHER | END 2024-05-04 10:12 | disposition home or self-care (01) | LOC: CSHWCC 10:11 | PROVIDERS: ATTEND Nurse Practitioner Family | DX: S31.000D Unspecified open wound of lower back and pelvis without penetration into retroperitoneum, subsequent encounter (principal); E11.621 Type 2 diabetes mellitus with foot ulcer; L97.415 Non-pressure chronic ulcer of right heel and midfoot with muscle involvement without evidence of necrosis; L02.212 Cutaneous abscess of back [any part, except buttock and flank]; M86.671 Other chronic osteomyelitis, right ankle and foot | CPT/HCPCS: 97597 ==

== ENCOUNTER 2024-05-11 08:56 | Outpatient (CLI) | payer OTHER | END 2024-05-11 08:57 | disposition home or self-care (01) | LOC: CSHWCC 08:56 | PROVIDERS: ATTEND Nurse Practitioner Family | DX: S31.000D Unspecified open wound of lower back and pelvis without penetration into retroperitoneum, subsequent encounter (principal); E11.621 Type 2 diabetes mellitus with foot ulcer; L97.415 Non-pressure chronic ulcer of right heel and midfoot with muscle involvement without evidence of necrosis; M86.671 Other chronic osteomyelitis, right ankle and foot; L02.212 Cutaneous abscess of back [any part, except buttock and flank] | CPT/HCPCS: 97597 ==

== ENCOUNTER 2024-05-18 08:45 | Outpatient (CLI) | payer OTHER | END 2024-05-18 08:46 | disposition home or self-care (01) | LOC: CSHWCC 08:45 | PROVIDERS: ATTEND Nurse Practitioner Family | DX: S31.000D Unspecified open wound of lower back and pelvis without penetration into retroperitoneum, subsequent encounter (principal); E11.621 Type 2 diabetes mellitus with foot ulcer; L97.415 Non-pressure chronic ulcer of right heel and midfoot with muscle involvement without evidence of necrosis; M86.671 Other chronic osteomyelitis, right ankle and foot; L02.212 Cutaneous abscess of back [any part, except buttock and flank] | CPT/HCPCS: 97597 ==

== ENCOUNTER 2024-05-26 13:24 | Outpatient (CLI) | payer OTHER | END 2024-05-26 13:25 | disposition home or self-care (01) | LOC: CSHWCC 13:24 | PROVIDERS: ATTEND Nurse Practitioner Family | DX: S31.000D Unspecified open wound of lower back and pelvis without penetration into retroperitoneum, subsequent encounter (principal); E11.621 Type 2 diabetes mellitus with foot ulcer; L97.415 Non-pressure chronic ulcer of right heel and midfoot with muscle involvement without evidence of necrosis; M86.671 Other chronic osteomyelitis, right ankle and foot; L02.212 Cutaneous abscess of back [any part, except buttock and flank] | CPT/HCPCS: 97597 ==

== ENCOUNTER 2024-06-23 09:55 | Outpatient (CLI) | payer OTHER | END 2024-06-23 09:56 | disposition home or self-care (01) | LOC: CSHWCC 09:55 | PROVIDERS: ATTEND Nurse Practitioner Family | DX: S31.000D Unspecified open wound of lower back and pelvis without penetration into retroperitoneum, subsequent encounter (principal); E11.621 Type 2 diabetes mellitus with foot ulcer; L97.415 Non-pressure chronic ulcer of right heel and midfoot with muscle involvement without evidence of necrosis; M86.671 Other chronic osteomyelitis, right ankle and foot; L02.212 Cutaneous abscess of back [any part, except buttock and flank] | CPT/HCPCS: 97597 ==

== ENCOUNTER 2024-11-24 08:19 | Outpatient (CLI) | payer OTHER | END 2024-11-24 08:20 | disposition home or self-care (01) | LOC: CSHWCC 08:19 | PROVIDERS: ATTEND Nurse Practitioner Family | DX: E11.621 Type 2 diabetes mellitus with foot ulcer (principal); L97.415 Non-pressure chronic ulcer of right heel and midfoot with muscle involvement without evidence of necrosis; I10 Essential (primary) hypertension; M86.671 Other chronic osteomyelitis, right ankle and foot | CPT/HCPCS: 97597 ==

== ENCOUNTER 2024-12-01 08:23 | Outpatient (CLI) | payer OTHER | END 2024-12-01 08:24 | disposition home or self-care (01) | LOC: CSHWCC 08:23 | PROVIDERS: ATTEND Nurse Practitioner Family | DX: E11.621 Type 2 diabetes mellitus with foot ulcer (principal); L97.415 Non-pressure chronic ulcer of right heel and midfoot with muscle involvement without evidence of necrosis; I10 Essential (primary) hypertension; M86.171 Other acute osteomyelitis, right ankle and foot | CPT/HCPCS: 97597 ==

== ENCOUNTER 2024-12-15 08:22 | Outpatient (CLI) | payer OTHER | END 2024-12-15 08:23 | disposition home or self-care (01) | LOC: CSHWCC 08:22 | PROVIDERS: ATTEND Nurse Practitioner Family | DX: E11.621 Type 2 diabetes mellitus with foot ulcer (principal); L97.415 Non-pressure chronic ulcer of right heel and midfoot with muscle involvement without evidence of necrosis; I10 Essential (primary) hypertension; M86.671 Other chronic osteomyelitis, right ankle and foot | CPT/HCPCS: 97597 ==

== ENCOUNTER 2024-12-23 14:57 | Emergency (ER) | payer OTHER ==
[2024-12-23] MEDS ORDERED: Fluorescein Opthalmic Strip ONE (15:23)
[2024-12-23] MEDS ORDERED: Boostrix 0.5 ML (Tdap) VIAL (>/=7 yrs of age) ONE (15:23)
[2024-12-23] MEDS ORDERED: Proparacaine 0.5% Opth 15 ML BOT ONE (15:23)
== END 2024-12-23 17:00 | disposition home or self-care (01) ==
LOC: CSHERS 14:57
DX: S05.02XA Injury of conjunctiva and corneal abrasion without foreign body, left eye, initial encounter (principal); I10 Essential (primary) hypertension; E11.40 Type 2 diabetes mellitus with diabetic neuropathy, unspecified; Z23 Encounter for immunization; W44.9XXA Unspecified foreign body entering into or through a natural orifice, initial encounter
CPT/HCPCS: 90471; 90715

== ENCOUNTER 2024-12-29 08:25 | Outpatient (CLI) | payer OTHER | END 2024-12-29 08:26 | disposition home or self-care (01) | LOC: CSHWCC 08:25 | PROVIDERS: ATTEND Nurse Practitioner Family | DX: E11.621 Type 2 diabetes mellitus with foot ulcer (principal); L97.415 Non-pressure chronic ulcer of right heel and midfoot with muscle involvement without evidence of necrosis; M86.671 Other chronic osteomyelitis, right ankle and foot; I10 Essential (primary) hypertension | CPT/HCPCS: 97597 ==

== ENCOUNTER 2025-01-05 11:24 | Outpatient (CLI) | payer OTHER | END 2025-01-05 11:25 | disposition home or self-care (01) | LOC: CSHWCC 11:24 | PROVIDERS: ATTEND Nurse Practitioner Family | DX: E11.621 Type 2 diabetes mellitus with foot ulcer (principal); L97.415 Non-pressure chronic ulcer of right heel and midfoot with muscle involvement without evidence of necrosis; M86.671 Other chronic osteomyelitis, right ankle and foot; I10 Essential (primary) hypertension | CPT/HCPCS: 99212; G0463 ==

== ENCOUNTER 2025-01-26 08:42 | Outpatient (CLI) | payer OTHER | END 2025-01-26 08:43 | disposition home or self-care (01) | LOC: CSHWCC 08:42 | PROVIDERS: ATTEND Nurse Practitioner Family | DX: E11.621 Type 2 diabetes mellitus with foot ulcer (principal); L97.415 Non-pressure chronic ulcer of right heel and midfoot with muscle involvement without evidence of necrosis; M86.671 Other chronic osteomyelitis, right ankle and foot; I10 Essential (primary) hypertension | CPT/HCPCS: 99212; G0463 ==

== ENCOUNTER 2025-02-02 10:03 | Outpatient (CLI) | payer OTHER | END 2025-02-02 10:04 | disposition home or self-care (01) | LOC: CSHWCC 10:03 | PROVIDERS: ATTEND Nurse Practitioner Family | DX: S91.332D Puncture wound without foreign body, left foot, subsequent encounter (principal); E11.621 Type 2 diabetes mellitus with foot ulcer; M86.671 Other chronic osteomyelitis, right ankle and foot; I10 Essential (primary) hypertension; L97.509 Non-pressure chronic ulcer of other part of unspecified foot with unspecified severity | CPT/HCPCS: 97597 ==

== ENCOUNTER 2025-02-16 10:52 | Outpatient (CLI) | payer OTHER | END 2025-02-16 10:53 | disposition home or self-care (01) | LOC: CSHWCC 10:52 | PROVIDERS: ATTEND Nurse Practitioner Family | DX: E11.621 Type 2 diabetes mellitus with foot ulcer (principal); L97.415 Non-pressure chronic ulcer of right heel and midfoot with muscle involvement without evidence of necrosis; I10 Essential (primary) hypertension; M86.671 Other chronic osteomyelitis, right ankle and foot | CPT/HCPCS: 97597 ==

== ENCOUNTER 2025-04-20 08:36 | Outpatient (CLI) | payer OTHER | END 2025-04-20 08:37 | disposition home or self-care (01) | LOC: CSHWCC 08:36 | PROVIDERS: ATTEND Nurse Practitioner Family | DX: E11.621 Type 2 diabetes mellitus with foot ulcer (principal); L97.415 Non-pressure chronic ulcer of right heel and midfoot with muscle involvement without evidence of necrosis; M86.671 Other chronic osteomyelitis, right ankle and foot ==